=== PATIENT | male | born 1990 | race Two or more races ===

== ENCOUNTER 2017-05-22 14:09 | Emergency (ER) | payer SELFPAY ==
[~2017-05-22] VITALS: Ht 170.2 cm; Wt 77.1 kg
[2017-05-22 15:26] VITALS: BP 96/63
[2017-05-22] MEDS ORDERED: diphenhdrAMINE HCL 50 MG/1 ML VL IM ONE (16:15)
[2017-05-22] MEDS ORDERED: EPINEPHrine HCL 1 MG/1 ML AMP SC ONE (16:15)
== END 2017-05-22 17:02 | disposition home or self-care (01) ==
LOC: ER 14:09
DX: T78.40XA Allergy, unspecified, initial encounter (principal)
CPT/HCPCS: 96372; 99284; J0171; J1200